=== PATIENT | female | born 1995 | race Caucasian/White ===

== ENCOUNTER → 2017-11-03 | Outpatient (CLI) | payer BC ==
--- NOTE | 2017-11-03 08:07 | DIAGNOSTIC IMAGING REPORT ---
ABDOMEN COMPLETE (US) CLINICAL HISTORY: ESOPHAGEAL REFLUX DISEASE, NAUSEA COMPARISON STUDY: No previous studies for comparison. FINDINGS: Liver morphology is normal. No hepatic lesions are identified. There is no biliary ductal dilatation. The gallbladder is normal. There are no gallstones. Pancreatic body and head are normal. The pancreatic tail is slightly obscured by overlying bowel gas. Size of the spleen is normal. There is no hydronephrosis. Renal echogenicity, size and cortical thickness are normal. There is no ascites. Visualized portions of the abdominal aorta are normal in caliber. IMPRESSION: Unremarkable abdominal ultrasound. Electronically signed by: Oc Eng M.D. 11/03/2017 8:06 AM Dictated Date/Time: 11/03/2017 8:01 AM
== END | disposition home or self-care (01) ==
LOC: C.ULTR 06:26
PROVIDERS: ATTEND Internal Medicine Gastroenterology
DX: K21.9 Gastro-esophageal reflux disease without esophagitis (principal); R11.0 Nausea

== ENCOUNTER → 2017-12-31 | Outpatient (CLI) | payer BC ==
[~2017-12-31] MED LIST: SINCALIDE INJ 1.4 MCG in SODIUM CHLORIDE 0.9% 100ML 100 ML IV ONE
--- NOTE | 2017-12-31 12:41 | DIAGNOSTIC IMAGING REPORT ---
NUCLEAR MEDICINE HEPATOBILIARY SCAN WITH GALLBLADDER EJECTION FRACTION CLINICAL HISTORY: Abdominal pain and vomiting. COMPARISON: Abdominal ultrasound November 03, 2017. TECHNIQUE: 5.6 mCi of technetium 99m Choletec IV was injected at 10:20 AM on December 31, 2017. Immediately following injection, imaging of the abdomen was carried out for 60 minutes in the anterior projection. At this time, 1.4 mcg of Sincalide was injected IV as per protocol. Imaging was performed for an additional 45 minutes to estimate a gallbladder ejection fraction. FINDINGS: Hepatic uptake of radiotracer is prompt and homogeneous. Activity is identified within the common bile duct and gallbladder at 10 minutes. Small bowel activity is first noted at 15 minutes. Following injection of sincalide, the gallbladder ejection fraction was estimated at 74%. Normal is greater than 30-35%. IMPRESSION: 1. Normal hepatobiliary scan. No evidence of acute or chronic cholecystitis. 2. Normal gallbladder ejection fraction of 74%. Electronically signed by: Oc Eng M.D. 12/31/2017 12:39 PM Dictated Date/Time: 12/31/2017 12:30 PM
== END | disposition home or self-care (01) ==
LOC: C.NUCL 09:55
PROVIDERS: ATTEND Internal Medicine Gastroenterology
DX: R10.9 Unspecified abdominal pain (principal); R11.10 Vomiting, unspecified